=== PATIENT | male | born 1950 | race African-American/Black ===

== ENCOUNTER 2017-06-24 13:16 | Outpatient (CLI) | payer MEDICARE ==
[2017-06-24 14:52] LABS: Hematocrit 45.9 % (42.0-52.0); Mean Platelet Volume 7.4 fL (7.4-10.4); Red Blood Cell (RBC) Count 4.79 mill/uL (4.70-6.10); White Blood Cell (WBC) Count 7.1 thou/uL (4.8-10.8)
[2017-06-24 14:58] LABS: PTT 29.6 SEC (22.9-36.1); Prothrombin Time 13.4 SEC (12.0-14.7)
== END 2017-06-24 13:17 | disposition home or self-care (01) ==
LOC: LABBT 13:16
PROVIDERS: ATTEND Neurological Surgery
DX: Z01.812 Encounter for preprocedural laboratory examination (principal); M48.061 Spinal stenosis, lumbar region without neurogenic claudication; M54.16 Radiculopathy, lumbar region
CPT/HCPCS: 85027; 85610; 85730

== ENCOUNTER 2017-07-02 05:49 | Observation (INO) | payer MEDICARE ==
--- NOTE | 2017-06-26 12:47 | HP ---
HISTORY OF PRESENT ILLNESS: Mr. Hook is a 66-year-old male that presents with low back pain and r ight-sided dull sensation in the L4 dermatome. This pain started in 11/2016, has gotten worse in the last 2 weeks. He has increased pain and fatigue feeling in his thighs and his legs and walking and standing for too long. He finds the pain is resolved immediately after sitting down and bending forw rosalinda. The pain is made somewhat better with gabapentin, Egan and using a foam roller over the right buttock. It took 3 right-sided TFESI injections with Dr. Godoy which gave little relief and has been doing some PT. He has also seen a chiropractor and received treatments from him. IMAGING: MRI of the lumbar spine at [facility]. X-rays, flexion, extension, [facility]. REVIEW OF SYSTEMS: Ten-point review of systems complete and is otherwise negative unless stated in t he above HPI. PAST MEDICAL HISTORY: Osteoarthritis. PAST SURGICAL HISTORY: Knee surgery, cartilage on the left, C2-C4 posterior laminectomy in 2011, and ulnar nerve, left arm. HOSPITALIZATIONS: 1997 impacted bowel secondary to stress. FAMILY HISTORY: Father is at 63 years old. Mother is alive at 84 years old. Drinking, hea lthy. SOCIAL HISTORY: Patient is a nonsmoker, no exposure to tobacco use. Uses alcohol occasionally. The re is no illicit drug use. He is and works as a junior staff accountant for [employer] and admits to socia l alcohol use, beer and hard drinks and denies tobacco use. MEDICATIONS: 1. Allopurinol 300 mg tablet 1 tablet orally once a day. 2. Advil 200 mg tablet 1 tablet with food or milk as needed orally q.6 hours. 3. Aleve 220 mg tablet 1 tablet as needed orally q.12 hours. 4. Gabapentin 300 mg capsule 1 capsule orally 3 times a day. 5. Egan 7.5/325 mg tablet, 1 tablet orally as needed q.8 hours for pain. ALLERGIES: No known drug allergies. PHYSICAL EXAMINATION: HEENT: Normocephalic, atraumatic. Hearing intact. Moist mucous membranes. Trachea is midline. Ey es: Pupils are equal and reactive to light. Extraocular muscles are intact. Sclerae is white, sasha cteric. PSYCHIATRIC: Normal mood and affect. CARDIOVASCULAR: No cyanosis or clubbing noted. Intact pedal pulses bilaterally in the upper and low er extremities. MUSCULOSKELETAL: 5/5 strength in bilateral iliopsoas, quadriceps, hamstrings, right tibialis anterio r, extensor hallucis longus. Sensory deficit in the right L4 and L5 dermatome. Tender to palpation in the midline lumbar spine. RESPIRATORY: Respirations, good effort in all lung irving, sound clear with no wheezing or crackles. NEUROLOGIC: Cranial nerves II-XII grossly intact. Speech is fluent, answers my questions appropriat tonio. Patient has antalgic gait and station. IMAGING: MRI shows moderate lateral recess stenosis, foraminal disease and stenosis at L3-4, L4-5, a nd L5-S1. Flexion, extension x-rays are stable. ASSESSMENT: 1. Lumbar spinal stenosis. 2. Spinal stenosis, lumbosacral region. 3. Spinal stenosis, the lumbosacral region without neurogenic claudication. PLAN: By history, lateral recess stenosis syndrome. Imaging shows moderate narrowing. We have trie d medications, activity modifications, PT, injections and there is no relief. Informed consent was silva kumar. We discussed the indications, risks, benefits, alternatives, and expected results from surgery . Risks discussed included, but were not limited to bleeding, infection, CSF leak, nerve damage, wea kness, incontinence, cauda equina injury, arachnoiditis, paralysis, ventilator dependence, wheelchair dependence, loss of vision, cardiopulmonary complications of anesthesia or . Long-term complic ations discussed included, but were not limited to spinal instability and future surgery. He underst ands the risks and is willing to proceed with the surgery. Surgery will be a laminectomy, foraminoto my L3-L4, L4-5, L5-S1 on the right microscope.
[2017-07-02] MEDS ORDERED: Sodium Chloride 0.9% 20 ML ONE (06:19)
[2017-07-02] MEDS ORDERED: Bupivacaine/Epinephrine 0.25% 30 ML VIAL ONE (06:19)
[2017-07-02] MEDS ORDERED: Thrombin 5000 UNITS/5 ML VIAL ONE (06:19)
[2017-07-02] MEDS ORDERED: CEFAZOLIN/Water 2 GM/20 ML SYRINGE ONE (06:27)
[2017-07-02] MEDS ORDERED: Fentanyl 250 MCG/5 ML VIAL ONE (06:39)
[2017-07-02] MEDS ORDERED: Albumin 5% 0 ML ONE (09:10)
[2017-07-02] MEDS ORDERED: Morphine 4 MG/ML VIAL ONE (10:48)
--- NOTE | 2017-07-02 11:09 | OP ---
DATE OF PROCEDURE: 07/02/2017 SURGEON: Martinez Morrell M.D. CLINICAL RESEARCH TECH: Dave Anthony PA-C. PREOPERATIVE INDICATION: Treat pain, prevent neurological deterioration. PREOPERATIVE DIAGNOSES: Lateral recess stenosis L3-L4, L4-L5, L5-S1, right side, with foraminal sten osis and multiple lumbar radiculopathies. POSTOPERATIVE DIAGNOSES: Lateral recess stenosis L3-L4, L4-L5, L5-S1, right side, with foraminal renata nosis and multiple lumbar radiculopathies. OPERATIVE PROCEDURE: Decompressive hemilaminectomy, medial facetectomy, and foraminotomy L3-L4, L4-L 5, L5-S1. PREOPERATIVE MEDICATION: Ancef 2 grams IV. DRAIN NUMBER: Zero. DRAIN TYPE: None. OPERATIVE DICTATION: The patient was brought to the operating room. General endotracheal anesthesia was induced. The patient was positioned prone on gel-filled chest rolls, and a lateral fluoro radio graph was used to plan our incision. The lumbar skin was sterilely prepped and draped. We opened wi th a 10 blade knife and controlled bleeding with bipolar and monopolar cautery. We used monopolar ca utery to dissect through the subcutaneous tissues to the thoracodorsal fascia. We incised the fascia in the midline and reflected the paraspinal muscles off the spinous process and lamina of L3, L4, an d L5. Self-retaining retractors were placed and a lateral fluoro radiograph confirmed the levels upo n which we were operating. Using bone rongeurs and high speed drill, we fashioned partial hemilamine ctomy on the right side of L3, L4, L5. We performed medial facetectomies at L3-L4, L4-L5, L5-S1 face t joints. We identified the exiting nerve roots at L3-L4 interspace, L4-L5 and L5-S1. We performed foraminotomies over these nerve roots under the operating microscope. Under the operating microscope and using microsurgical techniques, we continued opening the foramina. Once a Cerrato ball probe cou ld pass out of the each foramen along with the L3, L4, and L5 nerve roots without any impingement, wh atsoever. We consider decompression complete. We irrigated copiously with bacitracin irrigation. W e controlled ventral epidural bleeding with gentle bipolar cautery. We waxed the bone edges. We inf used local anesthetic in the paraspinal muscles. We closed the wound in anatomic layers and applied a sterile dressing. This was a clean case and no contamination.
[2017-07-02] MEDS ORDERED: Cyclobenzaprine 10 MG TAB ONE (12:36)
[2017-07-02] MEDS ORDERED: Acetaminophen/Codeine 30-300mg Tablet ONE (14:01)
[2017-07-02] MEDS ORDERED: Cyclobenzaprine 10 MG TAB PO PRN (15:36)
[2017-07-02] MEDS ORDERED: Acetaminophen/Codeine 30-300mg Tablet PO PRN (15:36)
[2017-07-02] MEDS ORDERED: Morphine 4 MG/ML VIAL SLOW IVP PRN ×2 (15:37→15:38)
[2017-07-02] MEDS ORDERED: Promethazine HCl 25 MG/ML VIAL IM/IV PRN (15:45)
[2017-07-02] MEDS ORDERED: Ondansetron HCl/PF 4 MG/2 ML Vial IVP PRN (15:45)
[2017-07-02] MEDS ORDERED: Lidocaine 1% PF 5 ML VIAL ONE (16:17)
[2017-07-02] MEDS ORDERED: PHENYLEPHRINE-NS 100 MCG/ML 10 ML SYRINGE ONE (16:17)
[2017-07-02] MEDS ORDERED: Propofol 200 MG/20 ML VIAL ONE (16:17)
[2017-07-02] MEDS ORDERED: Ondansetron HCl/PF 4 MG/2 ML Vial ONE (16:17)
[2017-07-02] MEDS ORDERED: Glycopyrrolate 0.2 MG/ML 5 ML SYRINGE ONE (16:17)
[2017-07-02] MEDS ORDERED: Dexamethasone 20 MG/5 ML VIAL ONE (16:17)
[2017-07-02] MEDS ORDERED: ePHEDrine/0.9% NaCl/PF SYRINGE 50 mg/10 ml ONE (16:17)
[2017-07-02] MEDS: Acetaminophen/Codeine 30-300mg Tablet PO PRN ×3 (17:03→23:14)
[2017-07-02 17:18] VITALS: BMI 32.9
[2017-07-03] MEDS ORDERED: Ondansetron HCl/PF 4 MG/2 ML Vial IVP PRN (01:10)
[2017-07-03 04:41] VITALS: BP 121/58; TEMP 98.7
--- NOTE | 2017-07-03 08:21 | PRG ---
DATE OF SERVICE: 07/03/2017 SUBJECTIVE: Mr. Hook is a 66-year-old male I saw in his room this morning. He is status post 1 d ay from L3-S1 right-sided laminectomy and foraminotomy. The pain in his legs has resolved this morni ng and is feeling much better. Yesterday, he was able to ambulate twice. This ambulation had been o n his own to the bathroom. This morning, I encouraged him to get up and have his nurse ambulate in [facility] before being discharged home. His incision has a little bit of blood at the base of the inci gin, when he stands up, blood is coming out. I put a communication order into nursing staff to redr ess the incision with extra 4 x 4s. I have explained to the patient that he can take a shower tonigh t, if he wishes when he gets home. His vital signs have been stable overnight and there are no new n eurologic deficits on exam. If there are any further questions, please feel free to contact Betzy garcia.
[2017-07-03] MEDS: Acetaminophen/Codeine 30-300mg Tablet PO PRN (10:44)
--- NOTE | 2017-07-03 14:12 | PRG ---
DATE OF SERVICE: 07/03/2017 I saw Mr. Hook early in the morning on rounds. He was 1 day out from a right-sided lateral recess decompression and foraminal decompression at L3-4, 4-5, and 5-1. He did not have pain in the legs, but his right leg felt heavier than the left. Incision was feeling reasonably comfortable and he was mobilizing on its own already. Mr. Hook is ready for discharge this morning. I talked to him ab out the feeling of heaviness, the use of local anesthetic during surgery and the fact that time and t herapy will help significantly. He is pleased with the results vis-?-vis pain control.
== END 2017-07-03 10:54 | disposition home or self-care (01) ==
LOC: SDC 05:49 → 2SW 13:24 → SDC 07-03 00:48
PROVIDERS: ADMIT Neurological Surgery; ATTEND Neurological Surgery
PROC: 01NB0ZZ Release Lumbar Nerve, Open Approach (ICD-10-PCS; principal; 2017-07-02)
DX: M48.061 Spinal stenosis, lumbar region without neurogenic claudication (principal); M54.16 Radiculopathy, lumbar region; M19.90 Unspecified osteoarthritis, unspecified site; Z79.899 Other long term (current) drug therapy; Z98.890 Other specified postprocedural states
CPT/HCPCS: 63047; 63048 ×2; 76001; G0378; A4216; J0131; J1100; J2001; J2270; J2405; J2704; J3010; J3370; J3490; P9045

== ENCOUNTER 2018-06-09 08:03 | Outpatient (CLI) | payer MEDICARE ==
--- NOTE | 2018-06-09 10:54 | MRI ---
MRI OF THE LUMBAR SPINE WITH AND WITHOUT CONTRAST: Date: 06/09/2018. COMPARISON: None. HISTORY: Lumbar radiculopathy, back pain with pain radiating into the right hip and down the right lower extre mity. TECHNIQUE: Multiplanar, multisequence MR imaging of the lumbar spine is provided with and without contrast. FINDINGS: The sagittal STIR imaging demonstrates no focal area of osseous marrow edema. There is no anterolisthesis or retrolisthesis seen within the lumbar spine. Assuming 5 lumbar-type v ertebral bodies, conus medullaris terminates at the T12-L1 level. T12-L1: Mild bilateral facet hypertrophy. No significant central canal or neural foraminal stenosis . L1-2: Mild bilateral facet hypertrophy, right greater than left. No significant central canal or ne ural foraminal stenosis. L2-3: Mild bilateral facet hypertrophy. There is disk desiccation and mild disk space narrowing. N o significant central canal stenosis. Mild bilateral neural foraminal stenosis, left greater than ri ght. L3-4: There is bilateral facet hypertrophy. There is disk space narrowing and disk desiccation. Th ere is no central canal stenosis. There is moderate/severe right-sided neural foraminal stenosis and there is moderate left neural foraminal stenosis. L4-5: No central canal stenosis. There is disk desiccation and mild disk bugle with no significant central canal stenosis. There is severe right and moderate left neural foraminal stenosis. L5-S1: There is disk desiccation and mild disk bulge with no central canal stenosis. Mild bilateral facet hypertrophy with mild bilateral neural foraminal stenosis. Posterior postoperative changes of the lumbar spine noted at L3 through L5 levels. Findings include what appear to be multilevel right-sided hemilaminectomy changes. Imaged retroperitoneal structures demonstrate no acute findings. Postcontrast imaging demonstrated enhancement of the posterior paraspinal soft tissues on the right a t L3-4, L4-5, and L5-S1 suggesting scar on the basis of prior multilevel right-sided hemilaminectomy. There is mild enhancement of the medial paraspinal musculature on the right adjacent to the right a spect of the spinous processes of L3, L4, and L5, also on the basis of postoperative scar. No abnorm al enhancement is seen involving nerve roots of the cauda equina, the intervertebral disks, or the im aged osseous structures. IMPRESSION: Multilevel postoperative change noted within the lumbar spine as detailed above. Multilevel bilatera l neural foraminal stenosis. No significant central canal stenosis within the lumbar spine. POS: SERA
== END 2018-06-09 08:04 | disposition home or self-care (01) ==
LOC: BICMRI 08:03
PROVIDERS: ATTEND Neurological Surgery
DX: M54.16 Radiculopathy, lumbar region (principal); M48.07 Spinal stenosis, lumbosacral region; M48.061 Spinal stenosis, lumbar region without neurogenic claudication; Z98.890 Other specified postprocedural states
CPT/HCPCS: 72158; 82565

== ENCOUNTER 2018-11-28 15:10 | Outpatient (CLI) | payer MEDICARE ==
[~2018-11-28 15:10] MED LIST: Gadobenate Dimeglumine 529 MG/1 ML (20ML VIAL) ONE
--- NOTE | 2018-11-28 16:54 | MRI ---
MR the lumbar spine with and without contrast INDICATION: Spinal stenosis; left hip and left leg pain for a few months COMPARISON: MR the lumbar spine with and without contrast dated June 09, 2018 TECHNIQUE: Multiplanar multisequence MR images were obtained of lumbar spine with and without IV cont rast. Contrast: 18 cc of MultiHance. FINDINGS: Bone marrow: Normal. Distal spinal cord and conus: Normal. Conus is seen to terminate at the L1 level. Visualized retroperitoneum and paraspinal soft tissues: Normal. No lymphadenopathy demonstrated. Vertebral levels: L5-S1: There is stable right L5 hemilaminectomy. There is a mild broad-based bulge with mild bilatera l facet joint degenerative change inducing mild to moderate bilateral neural foraminal narrowing which is stable. There is a stable superimposed left paracentral annular fissure. L4-5: There is a broad-based disc bulge with facet joint degenerative change. There is stable moderat e to severe bilateral neural foraminal narrowing. There is stable postsurgical change of a right L4 hemilaminectomy. L3-4: There is a broad-based disc bulge and facet hypertrophy inducing stable moderate to severe bila teral neural foraminal narrowing. There is stable postsurgical change of a right L3 hemilaminectomy. L2-3: There is a mild broad-based disc bulge with facet hypertrophy. There is mild to moderate bilate ral neural foraminal narrowing which is stable. L1-L2: There is a mild broad-based disc bulge and facet joint hypertrophy but no appreciable central canal or neural foraminal narrowing. T12-L1: There is mild facet joint degenerative change with no appreciable central canal or neural for aminal narrowing. Postcontrast series: No abnormal enhancement demonstrated. There is mild enhancement within the kris greg musculature of the lower lumbar spine likely related to scar from the patient's prior procedures. IMPRESSION: 1. Stable MR examination of the lumbar spine. 2. Stable multilevel neural foraminal narrowing.
== END 2018-11-28 15:11 | disposition home or self-care (01) ==
LOC: BICMRI 15:10
PROVIDERS: ATTEND Neurological Surgery
DX: M48.07 Spinal stenosis, lumbosacral region (principal); M54.41 Lumbago with sciatica, right side; M54.42 Lumbago with sciatica, left side; M48.061 Spinal stenosis, lumbar region without neurogenic claudication
CPT/HCPCS: 72158; 82565; A9577

== ENCOUNTER 2018-12-03 13:46 | Outpatient (CLI) | payer MEDICARE ==
--- NOTE | 2018-12-03 14:04 | RAD ---
Exam: 4 views of the lumbosacral spine HISTORY: Low back pain COMPARISON: None FINDINGS: 3 views of the lumbosacral spine shows normal height and alignment of the vertebral bodies and intervertebral discs without fracture or subluxation. Alignment is unchanged with flexion and extension. Small osteophytes are seen throughout the lumbar spine. The sacroiliac joints are unremarkable. IMPRESSION: Degenerative changes of the lumbar spine with unchanged alignment with bending
== END 2018-12-03 13:47 | disposition home or self-care (01) ==
LOC: BICRAD 13:46
PROVIDERS: ATTEND Neurological Surgery
DX: M48.07 Spinal stenosis, lumbosacral region (principal); M54.41 Lumbago with sciatica, right side; M54.42 Lumbago with sciatica, left side; M47.816 Spondylosis without myelopathy or radiculopathy, lumbar region
CPT/HCPCS: 72110

== ENCOUNTER 2020-06-21 13:25 | Outpatient (CLI) | payer MEDICARE ==
--- NOTE | 2020-06-21 13:45 | RAD ---
XR Chest Pa Lat STANDARD HISTORY: Thoracic outlet syndrome COMPARISON: None FINDINGS: The heart size is normal. The lungs are well expanded without focal areas of consolidation, pneumothorax or pleural effusions. IMPRESSION: No radiographic evidence of acute cardiopulmonary process.
== END 2020-06-21 13:26 | disposition home or self-care (01) ==
LOC: BICRAD 13:25
PROVIDERS: ATTEND Thoracic Surgery (Cardiothoracic Vascular Surgery)
DX: G54.0 Brachial plexus disorders (principal)
CPT/HCPCS: 71046

== ENCOUNTER 2020-07-13 08:19 | Outpatient (CLI) | payer MEDICARE ==
[2020-07-13 15:50] LABS: Bilirubin Neg (Negative); Blood, Urine 10 (Negative); Clarity Clear (Clear); Glucose, Urine (Dipstick) Normal (Negative); Ketone, Urine Negative (Negative); Leukocyte Negative (Negative); Nitrite Negative (Negative); Protein, Urine (Dipstick) 15 mg/dl (Neg-Trace); Specific Gravity, Urine 1.025 (1.002-1.036); Urobilinogen Normal mg/dL (Less than 2)
[2020-07-13 17:28] LABS: #Eosinphils 0.1 10x3/uL (0.0-0.5); #Monocytes 0.6 10x3/uL (0.0-1.1); #Neutrophils 3.2 10x3/uL (1.5-8.4); %Basophils 0.5 % (0.0-2.0); %Eosinophils 1.4 % (0.0-6.0); %Lymphocytes 38.8 % (18.0-47.0); %Monocytes 9.1 % (0.0-10.0); Hemoglobin 15.3 g/dL (14.0-18.0); Mean Corpuscular HGB CONC 33.6 G/DL (32.0-36.0); Mean Corpuscular Hemoglobin 30.4 PG (27.0-33.0); Mean Corpuscular Volume 90.3 fl (80.0-100.0); Mean Platelet Volume 10.6 fl (7.4-10.4); Platelet Count 228 10x3/uL (130-400); RBC Distribution Width 14.3 % (11.5-14.5); Red Blood Cell (RBC) Count 5.04 10x6/uL (4.40-5.80); White Blood Cell (WBC) Count 6.4 10x3/uL (4.5-11.0)
[2020-07-13 17:34] LABS: Anion Gap 13 mmol/L (10-20); BUN (Urea Nitrogen) 21 mg/dL (8.4-25.7); Calc. Creatinine Clearance 0 mL/min (70-130); Calcium 9.4 mg/dL (7.8-10.44); Carbon Dioxide 23 mmol/L (23-31); Chloride 106 mmol/L (98-107); Glucose 81 mg/dL (80-115); Potassium 3.9 mmol/L (3.5-5.1); Sodium 138 mmol/L (136-145)
[2020-07-13 18:18] LABS: RBC/HPF 0-3 HPF (0-3); WBC/HPF 0-3 HPF (0-3)
[2020-07-13 18:20] LABS: Bacteria/HPF Rare-Few HPF (None Seen); Squamous Epithelial 0-3 HPF (0-3)
[2020-07-14 02:42] LABS: SARS-CoV-2 MS2 Positive; SARS-CoV-2 N Gene Negative; SARS-CoV-2 S Gene Negative; SARS-CoV-2 by NAA Not Detected (NotDetected); SARS-CoV-2 orf1ab Negative
--- NOTE | 2020-07-15 08:46 | EKG ---
Test Reason : Blood Pressure : / mmHG Vent. Rate : 080 BPM Atrial Rate : 080 BPM P-R Int : 158 ms QRS Dur : 094 ms QT Int : 350 ms P-R-T Axes : 049 -07 -04 degrees QTc Int : 403 ms Normal sinus rhythm with sinus arrhythmia Possible Left atrial enlargement Borderline ECG No previous ECGs available Confirmed by FLORENCE DENISE, DR. Mckeon ([id number]) on 07/15/2020 8:46:13 AM Referred By: Jonas Stanford Confirmed By:DR. Linda HENRIQUEZ MD
== END 2020-07-13 08:20 | disposition home or self-care (01) ==
LOC: LABBT 08:19
PROVIDERS: ATTEND Orthopaedic Surgery Hand Surgery
DX: Z01.818 Encounter for other preprocedural examination (principal); Z20.828 Contact with and (suspected) exposure to other viral communicable diseases; G56.22 Lesion of ulnar nerve, left upper limb
CPT/HCPCS: 80048; 81001; 85025; 93005; U0003; 87635; 93010

== ENCOUNTER 2020-07-19 05:56 | Day surgery (SDC) | payer MEDICARE ==
[2020-07-13 12:44] VITALS: BMI 30.1
[2020-07-19] MEDS ORDERED: Fentanyl 100 MCG/2 ML VIAL ONE (06:22)
[2020-07-19] MEDS ORDERED: Midazolam HCl 2 mg/2 ml Vial ONE (06:22)
[2020-07-19] MEDS ORDERED: Betamet Acet/Betamet Na Ph 30 MG/5 ML VIAL ONE (06:36)
[2020-07-19] MEDS ORDERED: Bacitracin Zinc Ointment 30 gm TUBE ONE (06:36)
[2020-07-19] MEDS ORDERED: Lidocaine 1% w/Epinephrine 1:100K 20 ML VIAL ONE (06:36)
[2020-07-19] MEDS ORDERED: Bupivacaine PF 0.5% 30 ML VIAL ONE (06:36)
[2020-07-19] MEDS ORDERED: Lidocaine 1% PF 5 ML VIAL ONE (10:16)
[2020-07-19] MEDS ORDERED: Ondansetron PF 4 MG/2 ML Vial ONE (10:16)
[2020-07-19] MEDS ORDERED: Ketorolac Tromethamine 30 MG/ML VIAL ONE (10:16)
[2020-07-19] MEDS ORDERED: Dexamethasone 20 MG/5 ML VIAL ONE (10:16)
[2020-07-19] MEDS ORDERED: PHENYLEPHRINE-NS 100 MCG/ML 10 ML SYRINGE ONE (10:16)
[2020-07-19] MEDS ORDERED: PROPOFOL 200 MG/20 ML VIAL ONE (10:16)
--- NOTE | 2020-07-20 12:48 | OP ---
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 POSTOPERATIVE DIAGNOSIS: 1. 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 2. 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 PROCEDURE PERFORMED: 1. Ulnar nerve neuroplasty with submuscular transposition to include Z-lengthening of the flexor pronator origin. 2. Scar revision, 6 cm. TOURNIQUET TIME: 116 minutes. FINDINGS: 5 cm long area of hourglass formation including the primary cubital tunnel and the area proximal to this along the intermuscular septum. DESCRIPTION OF PROCEDURE: After successful general endotracheal anesthesia, limb was prepped and draped. The patient had a time-out accomplished. The patient then his previous incision visualized. We prepared to extend 5 cm distal and 6 cm proximal. This was outlined and Marcaine was given along the incision site, total of 20 mL without epinephrine. We exsanguinated the limb after placing a sterile tourniquet and prepping the entire arm and shoulder free. We then had inflated the tourniquet to 250 mmHg pressure. The arm was then placed in a 90 degree shoulder and 90 degree elbow flexion pattern with appropriate holding by the school psychologist assistant/crystal growing technician, and the surgery began. We carried the incision through skin, subcutaneous tissue and medially saw that the keloid was quite thick, and so we excised this and scar revision over a 6 cm area. Then, we had to trace proximal about 5 cm to the previous incision through skin and subcutaneous tissue, localized the ulnar nerve in an area where it was not involved in the scar, and then we dissected into the very dense scar. This required use of loupe magnification, tenotomy scissors, help from the school psychologist assistant to use DeBakey pickups, and we began a slow process of millimeter by millimeter freeing the ulnar nerve from the previous scar. It was here that we began to see the 5 cm of marked flattening hourglass formation of the ulnar nerve. This involved an area beginning at 2 cm proximal to the primary cubital tunnel and adherence to the intermuscular septum as well. Once we had done this, and then released it through primary cubital tunnel, we then extended the release of all compression to a point distal to the flexor pronator origin. We then protected the nerve, removed a 10 cm area intermuscular septum. We made a Z-type incision for Z-lengthening of the flexor pronator origin and slowly transferred the flexor carpi nerve branches and gently placed it in the submuscular Z-lengthened area. We placed Celestone 5 mL along this area and then loosely approximated it using #1 Ethibond OS-4 needle with interrupted [id number] x5 sutures. There was no undue compression with full range of motion after this. We then released the tourniquet and obtained hemostasis. We closed the incision with a running 3-0 Monocryl undyed and 3-0 nylon interrupted mattress pattern for epidermal closure. The patient had a pink digits with no evidence of anesthetic or operative complication, and a splint was applied at 45 degrees of flexion with the wrist included. The patient left the operating room without evidence of anesthetic or operative complication. Job ID: [id number]
== END 2020-07-19 12:54 | disposition home or self-care (01) ==
LOC: SDC 05:56
PROVIDERS: ATTEND Orthopaedic Surgery Hand Surgery
PROC: 01N40ZZ Release Ulnar Nerve, Open Approach (ICD-10-PCS; principal; 2020-07-19)
PROC: 0JBH0ZZ Excision of Left Lower Arm Subcutaneous Tissue and Fascia, Open Approach (ICD-10-PCS; 2020-07-19)
DX: G56.22 Lesion of ulnar nerve, left upper limb (principal); L91.0 Hypertrophic scar
CPT/HCPCS: J0690; J0702; J1100; J1885; J2250; J2405; J2704; J3010; S0020

== ENCOUNTER 2021-08-07 09:38 | Outpatient (CLI) | payer MEDICARE | END 2021-08-07 09:39 | disposition home or self-care (01) | LOC: BICRAD 09:38 | PROVIDERS: ATTEND Neurological Surgery | DX: M47.26 Other spondylosis with radiculopathy, lumbar region (principal) | CPT/HCPCS: 72110 ==

== ENCOUNTER 2021-09-04 13:29 | Outpatient (CLI) | payer MEDICARE ==
[2021-09-04 14:12] LABS: Estimated GFR-MDRD - POC Greater than 90
== END 2021-09-04 13:30 | disposition home or self-care (01) ==
LOC: TBSIIMAG 13:29
PROVIDERS: ATTEND Neurological Surgery
DX: M47.26 Other spondylosis with radiculopathy, lumbar region (principal); M48.061 Spinal stenosis, lumbar region without neurogenic claudication; Z98.890 Other specified postprocedural states
CPT/HCPCS: 72158; 82565

== ENCOUNTER 2022-06-21 16:03 | Outpatient (CLI) | payer MEDICARE | END 2022-06-21 16:04 | disposition home or self-care (01) | LOC: SCSRAD 16:03 | PROVIDERS: ATTEND Neurological Surgery | DX: M47.26 Other spondylosis with radiculopathy, lumbar region (principal) | CPT/HCPCS: 72110 ==

== ENCOUNTER 2022-10-15 09:42 | Outpatient (CLI) | payer MEDICARE ==
[2022-10-15] MEDS ORDERED: Magnevist 469MG/ML 20 ML VIAL ONE (09:51)
== END 2022-10-15 09:43 | disposition home or self-care (01) ==
LOC: TBSIIMAG 09:42
PROVIDERS: ATTEND Neurological Surgery
DX: M47.26 Other spondylosis with radiculopathy, lumbar region (principal); M51.27 Other intervertebral disc displacement, lumbosacral region; M48.061 Spinal stenosis, lumbar region without neurogenic claudication; I70.0 Atherosclerosis of aorta; M25.78 Osteophyte, vertebrae; Z98.890 Other specified postprocedural states
CPT/HCPCS: 72120; 72158; 82565

== ENCOUNTER 2023-04-22 16:00 | Outpatient (CLI) | payer MEDICARE | END 2023-04-22 16:01 | disposition home or self-care (01) | LOC: SCSRAD 16:00 | PROVIDERS: ATTEND Neurological Surgery | DX: M54.50 Low back pain, unspecified (principal); M47.816 Spondylosis without myelopathy or radiculopathy, lumbar region; M43.16 Spondylolisthesis, lumbar region | CPT/HCPCS: 72120 ==

== ENCOUNTER 2023-04-29 09:07 | Outpatient (CLI) | payer MEDICARE | END 2023-04-29 09:08 | disposition home or self-care (01) | LOC: CT 09:07 | PROVIDERS: ATTEND Neurological Surgery | DX: M54.50 Low back pain, unspecified (principal); M62.830 Muscle spasm of back | CPT/HCPCS: 74176 ==

== ENCOUNTER 2024-08-13 16:15 | Outpatient (CLI) | payer MEDICARE | END 2024-08-13 16:16 | disposition home or self-care (01) | LOC: SCSRAD 16:15 | PROVIDERS: ATTEND Internal Medicine | DX: M25.571 Pain in right ankle and joints of right foot (principal); M77.51 Other enthesopathy of right foot and ankle; M19.071 Primary osteoarthritis, right ankle and foot ==

== ENCOUNTER 2025-06-03 08:55 | Outpatient (CLI) | payer MEDICARE | END 2025-06-03 08:56 | disposition home or self-care (01) | LOC: SCSRAD 08:55 | PROVIDERS: ATTEND Internal Medicine | DX: J40 Bronchitis, not specified as acute or chronic (principal) | CPT/HCPCS: 71046 ==